=== PATIENT | female | born 1995 | race Caucasian/White ===

== ENCOUNTER → 2019-01-04 | Outpatient (CLI) | payer OTHER ==
[2019-01-04 13:14] LABS: BASO % 0.2 % (0.0-1.0); EOS # 0.1 10^3/uL (0.0-0.5); EOS % 0.4 % (0.0-3.0); HEMATOCRIT 39.4 % (36.0-47.0); HEMOGLOBIN 13.5 g/dl (12.0-15.5); LYMPH % 8.8 % (24.0-44.0); MEAN CORPUSCULAR HEMOGLOBIN 29.9 pg (27.0-33.0); MEAN CORPUSCULAR HGB CONC 34.3 g/dl (32.0-36.5); MEAN CORPUSCULAR VOLUME 87.4 fl (80.0-96.0); MONO # 0.4 10^3/uL (0.0-0.8); MONO % 3.5 % (0.0-5.0); NEUTROPHILS # 9.8 10^3/uL (1.5-8.5); NEUTROPHILS % 86.8 % (36.0-66.0); PLATELET COUNT, AUTOMATED 265 10^3/uL (150-450); RED BLOOD COUNT 4.51 10^6/uL (4.00-5.40); WHITE BLOOD COUNT 11.2 10^3/uL (4.0-10.0)
[2019-01-04 14:44] LABS: HEPATITIS C VIRUS ABY INDEX 0.1 INDEX (<0.8); HIV 1&2 SCREEN CENTAUR NEGATIVE (NEGATIVE); RUBELLA IgG QUALITATIVE IMMUNE (IMMUNE)
[2019-01-04 15:17] LABS: CHLAMYDIA DNA AMPLIFICATION NEGATIVE (NEGATIVE); GC DNA AMPLIFICATION NEGATIVE (NEGATIVE)
== END ==
LOC: M SMT 11:03
PROVIDERS: ATTEND Advanced Practice Midwife
DX: Z34.01 Encounter for supervision of normal first pregnancy, first trimester (principal); Z3A.09 9 weeks gestation of pregnancy

== ENCOUNTER → 2019-03-01 | Outpatient (CLI) | payer OTHER | LOC: M SMT 14:55 | PROVIDERS: ATTEND Advanced Practice Midwife | DX: Z13.79 Encounter for other screening for genetic and chromosomal anomalies (principal) ==

== ENCOUNTER → 2019-03-15 | Outpatient (CLI) | payer OTHER ==
--- NOTE | 2019-03-15 10:27 | REP ---
OB ULTRASOUND: Real-time sonographic evaluation of the gravid uterus performed. There is a single living intrauterine gestation. The estimated gestation age is 19 weeks 2 days, EDC 08/07/2019. Today's measurements indicate appropriate growth. Biometry and Growth: BPD 40 mm = 18 weeks 1 day, 19th percentile HC 151 mm = 18 weeks 1 day, 15th percentile AC 130 mm = 18 weeks 4 days, 33rd percentile FL 28 mm = 18 weeks 3 days, 28th percentile HC/AC ratio 1.16 within normal range. Estimated weight 240 grams, 17th percentile. SEEN/GROSSLY UNREMARKABLE Lateral ventricles Yes Posterior fossa Yes Upper lip Yes Four-chamber heart No LVOT Yes RVOT Yes Stomach Yes Cord insertion No Three vessel cord Yes Kidneys Yes Bladder Yes Spine Yes Cervical length: Cervix is closed and measures 2.9 cm in length. heart rate: 156 beats per minute. position: Vertex. Placenta: Posterior and grade 1 with no previa or abruption. Amniotic fluid: Within normal limits. Electronically Signed by Hayden Rosado MD 03/16/2019 11:16 A
== END ==
LOC: M RAD 08:52
PROVIDERS: ATTEND Advanced Practice Midwife
DX: Z34.02 Encounter for supervision of normal first pregnancy, second trimester (principal); Z3A.19 19 weeks gestation of pregnancy

== ENCOUNTER → 2019-04-13 | Outpatient (CLI) | payer OTHER ==
--- NOTE | 2019-04-13 09:28 | REP ---
Obstetric sonography: History: Supervision of followup anatomy, heart and cord insertion and growth. Findings: Scanning through the gravid uterus demonstrates a viable single intrauterine gestation in a cephalic lie. motion is observed and heart rate is recorded at 158 beats per minute. A posterior grade 1 placenta is seen without evidence of previa or abruption. Amniotic fluid is subjectively normal. Closed cervical length is viewed transabdominally and measured at 3.3 cm. No extrauterine abnormalities observed. There has been appropriate interval growth. The umbilical cord is seen draping over the neck. No anomaly is seen. Following anatomic structures are identified today and felt to be unremarkable: cranium, choroid plexus scan, cavum, cerebellum posterior fossa, face and profile, lungs, four-chamber heart with left and right ventricular outflow tract views, diaphragm, left-sided stomach, abdominal wall cord insertion, three-vessel cord, kidneys and bladder, spine, upper and lower extremities. Biometry chart: BPD 5.3 cm 22 weeks 1 day head circumference 20.1 cm 22 weeks 1 day abdominal circumference 16.7 cm 21 weeks 5 days femur length 4.0 cm 22-week 6 days humeral length 3.7 cm 22-week 6 days HC/AC ratio normal 1.20 cephalic index normal 0.73 estimated weight 483 grams/1 pound 1 ounce/11th percentile for 23 weeks 3 days Impression: Viable single intrauterine gestation at 22 weeks 2 days by today's composite sonographic criteria. Expected gestational age estimate based on prior sonography is 22 weeks 4 days. GREGORIA by prior sonography August 13, 2019. anatomic survey is felt to be complete. Electronically Signed by Neftali Tobin MD 04/13/2019 09:20 A
== END ==
LOC: M RAD 08:17
PROVIDERS: ATTEND Advanced Practice Midwife
DX: Z34.92 Encounter for supervision of normal pregnancy, unspecified, second trimester (principal); Z3A.22 22 weeks gestation of pregnancy

== ENCOUNTER → 2019-05-04 | Outpatient (CLI) | payer OTHER ==
[2019-05-04 13:36] LABS: BASO % 0.2 % (0.0-1.0); EOS # 0.2 10^3/uL (0.0-0.5); EOS % 2.2 % (0.0-3.0); HEMATOCRIT 37.5 % (36.0-47.0); HEMOGLOBIN 11.6 g/dl (12.0-15.5); LYMPH # 1.3 10^3/uL (1.5-5.0); LYMPH % 13.1 % (24.0-44.0); MEAN CORPUSCULAR HEMOGLOBIN 28.6 pg (27.0-33.0); MEAN CORPUSCULAR HGB CONC 30.9 g/dl (32.0-36.5); MEAN CORPUSCULAR VOLUME 92.4 fl (80.0-96.0); MONO # 0.5 10^3/uL (0.0-0.8); MONO % 5.2 % (0.0-5.0); NEUTROPHILS # 7.5 10^3/uL (1.5-8.5); NEUTROPHILS % 77.4 % (36.0-66.0); PLATELET COUNT, AUTOMATED 234 10^3/uL (150-450); RED BLOOD COUNT 4.06 10^6/uL (4.00-5.40); WHITE BLOOD COUNT 9.7 10^3/uL (4.0-10.0)
== END ==
LOC: M PLALAB 07:58
PROVIDERS: ATTEND Advanced Practice Midwife
DX: Z34.92 Encounter for supervision of normal pregnancy, unspecified, second trimester (principal)

== ENCOUNTER → 2019-05-16 | Outpatient (CLI) | payer OTHER | LOC: M WHC 09:38 | PROVIDERS: ATTEND Advanced Practice Midwife | DX: Z53.9 Procedure and treatment not carried out, unspecified reason (principal); O36.5990 Maternal care for other known or suspected poor fetal growth, unspecified trimester, not applicable or unspecified; Z3A.00 Weeks of gestation of pregnancy not specified ==

== ENCOUNTER → 2019-05-24 | Outpatient (CLI) | payer OTHER | LOC: M PLALAB 10:06 | PROVIDERS: ATTEND Advanced Practice Midwife | DX: Z13.79 Encounter for other screening for genetic and chromosomal anomalies (principal) ==

== ENCOUNTER → 2019-05-24 | Outpatient (CLI) | payer OTHER ==
--- NOTE | 2019-05-25 05:03 | REP ---
Clinical: IUGR for cord Doppler assessment and well-being Comparison: 05/12/2019 . Findings: Examination demonstrates a single live intrauterine in cephalic presentation. motion is identified by technologist. Placenta is noted posterior and grade I without evidence for placenta previa or abruption. Amniotic fluid volume is normal. Cervix measures 3.3 cm in length and appears closed. No evidence for nuchal cord. Gestational age by LMP 29 weeks 2 days with GREGORIA 08/07/2019 . FHR equals 153 beats per minute. Biophysical profile score: 8/8 Umbilical cord ( insertion) SD ratio: 3.24 (3.30 - 4.70); RI 0.69 Umbilical cord (placental insertion) SD ratio: 2.11 (2.5 - 3.5); RI 0.53 Umbilical cord (mid cord) SD ratio: 1.96 (2.5 - 3.5); RI 0.49 Impression: Single live intrauterine in cephalic presentation. Biophysical profile score normal.
== END ==
LOC: M WHC 09:26
PROVIDERS: ATTEND Specialist
DX: Z34.82 Encounter for supervision of other normal pregnancy, second trimester (principal)

== ENCOUNTER → 2019-06-05 | Outpatient (CLI) | payer OTHER ==
--- NOTE | 2019-06-05 09:31 | REP ---
Clinical: well-being Comparison: 05/24/2019 . Findings: Examination demonstrates a single live intrauterine in cephalic presentation. motion is identified by technologist. Placenta is noted posterior and grade I without evidence for placenta previa or abruption. Amniotic fluid volume is normal. Cervix measures 3.8 cm in length and appears closed. Nuchal cord noted. Gestational age by LMP 31 weeks 0 days with GREGORIA 08/07/2019 . FHR equals 162 beats per minute. Biophysical profile score: 8/8 Amniotic fluid index: 10.3 cm (8.8 - 23.8) Umbilical cord SD ratio: 2.06 (3.30 - 4.70) Impression: Single live advanced gestation in cephalic presentation. Biophysical profile score normal. Umbilical cord SD ratio below normal range. Nuchal cord noted. Electronically Signed by Macario Stephen MD 06/05/2019 09:22 A
== END ==
LOC: M RAD 08:01
PROVIDERS: ATTEND Advanced Practice Midwife
DX: O36.5990 Maternal care for other known or suspected poor fetal growth, unspecified trimester, not applicable or unspecified (principal); Z3A.31 31 weeks gestation of pregnancy

== ENCOUNTER → 2019-06-09 | Outpatient (CLI) | payer OTHER ==
--- NOTE | 2019-06-09 10:20 | REP ---
Clinical: well-being. Nonreactive stress test Comparison: 06/05/2019 . Findings: Examination demonstrates a single live intrauterine in cephalic presentation. motion is identified by technologist. Placenta is noted posterior and grade I without evidence for placenta previa or abruption. Amniotic fluid volume is normal. Cervix measures 3.2 cm in length and appears closed. Nuchal cord noted. Gestational age is 31 weeks 4 days with GREGORIA 08/07/2019 . FHR equals 149 beats per minute. Biophysical profile score: 8/8 Umbilical cord SD ratio: 2.46 (2.50 - 3.50) Amniotic fluid index: 13.3 cm (8.7 - 24.0) Impression: Single live advanced gestation in cephalic presentation. Biophysical profile score and amniotic fluid volume are normal. Nuchal cord noted.
== END ==
LOC: M WHC 09:04
PROVIDERS: ATTEND Specialist
DX: O36.5990 Maternal care for other known or suspected poor fetal growth, unspecified trimester, not applicable or unspecified (principal); O28.3 Abnormal ultrasonic finding on antenatal screening of mother; Z3A.31 31 weeks gestation of pregnancy

== ENCOUNTER → 2019-06-16 | Outpatient (CLI) | payer OTHER ==
--- NOTE | 2019-06-16 10:42 | REP ---
Clinical: well-being Comparison: 06/09/2019 . Findings: Examination demonstrates a single live intrauterine in cephalic presentation. motion is identified by technologist. Placenta is noted posterior and grade I without evidence for placenta previa or abruption. Amniotic fluid volume is normal. Cervix measures 3.2 cm in length and appears closed. No evidence for nuchal cord. Gestational age by LMP 32 weeks 4 days with GREGORIA 08/07/2019 . Gestational age by current measurements 31 weeks 0 days with GREGORIA 08/18/2019 . FHR equals 158 beats per minute. BPD 7.7 cm 30 weeks 6 days HC 29.1 cm 32 weeks 0 days AC 24.5 cm 28 weeks 5 days FL 6.0 cm 31 weeks 2 days HL 5.2 cm 30 weeks 2 days HC/AC ratio 1.19 Estimated weight 1501 grams (less than 3rd percentile). Biophysical profile score: 12/01 Amniotic fluid index: 8.9 cm (8.4 - 24.4) Anatomical assessment demonstrates normal structures including four-chamber heart, diaphragm, stomach, cord insertion/three-vessel cord, kidneys/bladder, and spine. Impression: Single live intrauterine in cephalic presentation. Less than expected interval growth noted. Amniotic fluid volume and biophysical profile score are normal.
== END ==
LOC: M WHC 09:37
PROVIDERS: ATTEND Advanced Practice Midwife
DX: O36.5930 Maternal care for other known or suspected poor fetal growth, third trimester, not applicable or unspecified (principal); Z3A.32 32 weeks gestation of pregnancy

== ENCOUNTER → 2019-06-23 | Outpatient (CLI) | payer OTHER ==
[~2019-06-23] MED LIST: MULTTAB20 PO; OSEL75CA PO; PENI500T PO
--- NOTE | 2019-06-23 12:31 | REP ---
OB ULTRASOUND AND BIOPHYSICAL PROFILE: Real-time sonographic evaluation of the gravid uterus performed. There is a single living intrauterine gestation. The estimated gestational age is 33 weeks 4 days, EDC 08/07/2019. Cervix is closed and measures 3 cm in length. heart rate 150 beats per minute. Amniotic fluid appears within normal limits, MICHEAL 13.1 within normal range of 8.2 to 24.7. Biophysical profile score is 8/8. S/D ratio in the umbilical artery is 2.17 within normal range of 2.0 to 3.0, RI 0.54 below normal range 0.59 to 0.75. position is vertex. Placenta posterior and grade 1 with no previa or abruption.
== END ==
LOC: M WHC 09:49
PROVIDERS: ATTEND Advanced Practice Midwife
DX: O36.5930 Maternal care for other known or suspected poor fetal growth, third trimester, not applicable or unspecified (principal)

== ENCOUNTER 2019-06-27 20:08 | Emergency (ER) | payer OTHER ==
[~2019-06-27] VITALS: Ht 160 cm; Wt 70.8 kg
[2019-06-27] MEDS ORDERED: MULTTAB20 PO (20:33)
[2019-06-27 21:18] LABS: INFLUENZA A AMPLIFICATION NEGATIVE (NEGATIVE); INFLUENZA B AMPLIFICATION POSITIVE (NEGATIVE)
[2019-06-27] MEDS ORDERED: PENI500T PO (23:08)
[2019-06-27] MEDS ORDERED: OSEL75CA PO (23:08)
[2019-06-27] MEDS ORDERED: PENICILLIN V POTASSIUM 500 MG TAB PO ONE (23:15)
[2019-06-27 23:16] VITALS: BP 119/67
== END 2019-06-27 23:33 | disposition home or self-care (01) ==
LOC: M ED 20:08
DX: O98.513 Other viral diseases complicating pregnancy, third trimester (principal); J10.1 Influenza due to other identified influenza virus with other respiratory manifestations; Z79.899 Other long term (current) drug therapy; Z3A.34 34 weeks gestation of pregnancy

== ENCOUNTER → 2019-06-27 | Outpatient (REF) | payer OTHER | LOC: M SFHCWAGY 17:10 | PROVIDERS: ATTEND Advanced Practice Midwife | DX: Z36.85 Encounter for antenatal screening for Streptococcus B (principal); O36.5930 Maternal care for other known or suspected poor fetal growth, third trimester, not applicable or unspecified ==

== ENCOUNTER → 2019-07-07 | Outpatient (CLI) | payer OTHER ==
--- NOTE | 2019-07-07 12:09 | REP ---
Obstetric ultrasound for growth: There is a single intrauterine gestation in a vertex presentation. There is movement and cardiac activity. The heart rate is 154 beats per minute. The placenta is posterior / left lateral without previa or abruptio and with grade 1 maturity. The amniotic fluid volume subjectively is normal. The amniotic fluid index is 12.4 (deepest pocket). The cervix measures 2.5 cm. Gestational age by today's ultrasound is 33 weeks 0 days/GREGORIA 08/25/2019. Gestational age by the first ultrasound is 34 weeks 5 days/GREGORIA 08/13/2019. Gestational age by LMP is 35 weeks 4 days/GREGORIA 08/07/2019. weight is 2088 grams/4 pounds, 9 ounces. This is the 6th percentile for 35 weeks 4 days. The umbilical cord is identified dripping over the neck. A nuchal cord cannot be excluded. Biophysical profile: Breathing 2.0 Movement 2.0 Tone 2.0 AFV 2.0 Total 280 / 8.0 Umbilical artery Doppler assessment: S/D ratio 2.16 (2.30-3.30) Resistive Index 0.54 (0.59-0.75 Diastolic Velocity 13.5. (>10 cm/sec) The cerebral artery Doppler assessment: S/D 4.74 - normal RI: 0.79 - normal MoM 0.91 (<1.5) Electronically Signed by Hayden Ortega MD 07/07/2019 12:02 P
== END ==
LOC: M RAD 09:52
PROVIDERS: ATTEND Obstetrics & Gynecology
DX: Z34.93 Encounter for supervision of normal pregnancy, unspecified, third trimester (principal); Z3A.34 34 weeks gestation of pregnancy

== ENCOUNTER → 2019-07-12 | Outpatient (CLI) | payer OTHER ==
--- NOTE | 2019-07-12 12:01 | REP ---
OB ULTRASOUND AND BIOPHYSICAL PROFILE.: Real-time sonographic evaluation of the gravid uterus performed. There is a single living intrauterine gestation with estimated gestational age 36 weeks 2 days, EDC 08/07/2019. Cervix is closed and measures 3.5 cm in length. heart rate 156 beats per minute. Amniotic fluid is within normal limits, MICHEAL 10.7 is within normal range of 7.6 to 24.8. Biophysical profile score is 8/8. S/D ratio in the mid umbilical arteries 2.24 within normal range of 1.88 to 2.88. RI 0.5 is slightly below normal range of 0.59 to 0.75. position vertex. Placenta posterior and grade 2 with no previa or abruption.
== END ==
LOC: M WHC 10:28
PROVIDERS: ATTEND Specialist
DX: O36.5990 Maternal care for other known or suspected poor fetal growth, unspecified trimester, not applicable or unspecified (principal); Z3A.36 36 weeks gestation of pregnancy

== ENCOUNTER → 2019-07-13 | Outpatient (REF) | payer OTHER ==
[~2019-07-13] MED LIST changes: +MAPA500T2 PO; +TUMS500C PO
[2019-07-13 12:00] LABS: HEMATOCRIT 38.6 % (36.0-47.0); HEMOGLOBIN 12.3 g/dl (12.0-15.5); MEAN CORPUSCULAR HGB CONC 31.9 g/dl (32.0-36.5); MEAN CORPUSCULAR VOLUME 87.9 fl (80.0-96.0); PLATELET COUNT, AUTOMATED 312 10^3/uL (150-450); RED BLOOD COUNT 4.39 10^6/uL (4.00-5.40); WHITE BLOOD COUNT 12.2 10^3/uL (4.0-10.0)
[2019-07-13 12:07] LABS: ALT/SGPT 24 U/L (12-78); BILIRUBIN,TOTAL 0.3 MG/DL (0.2-1.0); CREATININE FOR GFR 0.49 MG/DL (0.55-1.30); GLOMERULAR FILTRATION RATE > 60.0 (>60); LDH LACTATE DEHYDROGENASE 166 U/L (84-246); URIC ACID 3.6 MG/DL (2.6-6.0)
[2019-07-13 12:29] LABS: TOTAL PROTEIN,RANDOM URINE 38.8 MG/DL (0.0-12.0)
== END ==
LOC: M PLALAB 09:23
PROVIDERS: ATTEND Advanced Practice Midwife
DX: O16.3 Unspecified maternal hypertension, third trimester (principal)

== ENCOUNTER 2019-07-17 07:38 | Inpatient (IN) | payer OTHER ==
[2019-07-17] VITALS (26 sets, daily range): BP systolic 111–181; BP diastolic 56–88
[~2019-07-17] VITALS: Ht 160 cm; Wt 70.4 kg
[~2019-07-17 07:38] MED LIST changes: -MAPA500T2 PO; -TUMS500C PO
[2019-07-17] MEDS ORDERED: LACTATED RINGER'S 1000 ML IV STA (08:06)
[2019-07-17] MEDS ORDERED: MAPA500T2 PO (08:33)
[2019-07-17] MEDS ORDERED: TUMS500C PO (08:33)
[2019-07-17 08:58] LABS: HEMATOCRIT 36.1 % (36.0-47.0); HEMOGLOBIN 11.9 g/dl (12.0-15.5); MEAN CORPUSCULAR HEMOGLOBIN 28.1 pg (27.0-33.0); MEAN CORPUSCULAR VOLUME 85.1 fl (80.0-96.0); PLATELET COUNT, AUTOMATED 222 10^3/uL (150-450); RED BLOOD COUNT 4.24 10^6/uL (4.00-5.40); WHITE BLOOD COUNT 10.2 10^3/uL (4.0-10.0)
[2019-07-17] MEDS ORDERED: miSOPROStol 50 MCG 1/2 TAB (S0191) PO ONE (10:15)
[2019-07-17 10:22] LABS: ALT/SGPT 19 U/L (12-78); BILIRUBIN,TOTAL 0.3 MG/DL (0.2-1.0); CREATININE FOR GFR 0.54 MG/DL (0.55-1.30); GLOMERULAR FILTRATION RATE > 60.0 (>60); LDH LACTATE DEHYDROGENASE 194 U/L (84-246); URIC ACID 4.7 MG/DL (2.6-6.0)
--- NOTE | 2019-07-17 10:45 | HPEPDOC ---
Obstetrical History & Physical General Date of Admission Jul 17, 2019 at 07:38 Primary Care Physician: ANKIT MENDIOLA CNM History of Present Illness Patient is a 24-year-old female who is a at 37 weeks gestation with an GREGORIA of 08/08/19 based off of her LMP and consistent with her first trimester ultras ound. She initiated care in her first trimester of with [facility]. Her has been complicated by IUGR, which was diagnosed in late second trimester and GHTN, which was just diagnosed last week. Patient reports active movement. She denies preeclamptic symptoms, vaginal bleeding, leaking of fluid or contractions. Chief Complaint: Gestational Hypertension, Other (IUGR) Information Provided By: Patient Age: 24 : 1 Term: 0 Pre-term: 0 Abortions: 0 Livin Care Care: Good Care Dating Final EDC: Aug 07, 2019 Final EDC by: LMP EGA at Admission: 37 Antepartum Course Diagnos(e)s intrauterine growth restriction Gestational hypertension Height (inches): 63 Pre- weight (lbs.): 140 Admission Weight (lbs.): 154 Change in Weight (lbs.): 14 Past Medical History Past Obstetrical History : Past Obstetrical History: Primgravida Past Medical History Medical History scoliosis varicella as a child Surgical History: Denies/None Family History Significant Family History: Diabetes Social History Marital Status: Family situation: Spouse/partner home Psychosocial History: No pertinent psych hx * Smoker: non-smoker Alcohol: Denies Drugs: denies Abuse Violence Screening Have you been hit/kicked/slapp: No Have you been sexually assault: No Imunizations Tdap status: current Allergies Coded Allergies: No Known Allergies (Unverified , 06/27/19) Medications Scheduled Calcium Carbonate (Tums) 200 Mg Tab.chew, 2 TAB PO QID for cough and congestion No122/Iron/Folic Acid ( Multi Tablet) 1 Each Tablet, 1 TAB PO DAILY Miscellaneous Medications Acetaminophen (Mapap) 500 Mg Tablet, 1,000 MG PO Physical Examination Physical Examination GENERAL: Alert and oriented times three. BREAST: . ABDOMEN: Gravid and non-tender to touch. FETUS: Is vertex (VTX) by sterile vaginal examination (SVE), fetus is vertex (VTX) by Joshua. HEART RATE: Regular rate and rhythm. LUNGS: Clear to auscultation (CTA). EXTREMITIES: No edema. No clonus. Deep tendon reflexes (DTRs) + 2. Vital Signs/I&O Vital Signs Date Time Temp Pulse Resp B/P (MAP) Pulse Ox O2 Delivery O2 Flow Rate FiO2 07/17/19 08:54 96 16 120/69 (86) 07/17/19 07:58 98.3 97 Room Air Laboratory Data 24H LABS Laboratory Tests 2 07/17/19 07:50: Serology Scanned Report Hepatitis B Testing 07/17/19 08:37: Nucleated Red Blood Cells % (auto) 0.0 CBC/BMP Laboratory Tests 07/17/19 08:37 Urine Culture: No Growth Pertinent Laboratoy Data Blood Type: A+ RBC Antibody Screen: Negative HIV: Negative Hepatitis B: Negative Hepatitis C: Negative Rapid Plasma Reagin: Nonreactive Rubella: Immune Chlamydia/Gonorrhea: Negative Group B Streptococcus: Negative Glucose Tolerance Test: 104 Diag/Inter Therapy NIPT test is low risk Horizons test is negative for 4 /4 disease Anatomy Ultrasound Ultrasound Date: Jul 07, 2019 Placenta Location: Posterior Normal Anatomy: Yes Placenta Previa: No Estimated Weight (grams): 2087 Vaginal Examination Dilation: 1cm Effacement: 80% Station: -1 Cervical Consistency: Soft Cervical Position: Anterior Presentation: Cephalic presentation Position: Vertex (occiput) Assessment Heart Rate (FHR): 150 Variability: Moderate Accelerations: Positive Decelerations: None Tocometer Contractions: No Assessment/Plan Assessment IUP at 37 weeks gestation GBS negative GHTN IUGR Category I FHR tracing Plan Admit to L&D per physicians recommendation. Plan of care was collaborated with Dr. Billings. AMIE ad lindy. Diet: regular now and then clears when IV Pitocin is started. Group B Streptococcus (GBS) negative. Labs and intravenous (IV) per unit protocol. Counseled on Cytotec, pak bulb and IV Pitocin for induction of labor. Cytotec ordered to start. Anesthesia and neonatology consult as needed. Lactated Ringers (LR): Bolus prior to epidural at 500 mL, then at 125 mL/hr. Anticipate cervical ripening. C-S as appropriate. ANKIT MENDIOLA CNM Jul 17, 2019 10:45
[2019-07-17] MEDS ORDERED: OXYTOCIN 30 UNITS IN 0.9% NaCl 500ML IV BAG (J2590) As Ordered ONE (15:02)
[2019-07-17] MEDS ORDERED: OXYTOCIN DRIP 30 UNITS in IV 1 EA IV SCH (15:15)
--- NOTE | 2019-07-17 15:21 | IPNPDOC ---
Obstetrical Progress Note Date of Service Jul 17, 2019 Subjective Patient reports she is just feeling some cramping. Objective Vital Signs Date Time Temp Pulse Resp B/P (MAP) Pulse Ox O2 Delivery O2 Flow Rate FiO2 07/17/19 13:40 99 122/62 (82) 07/17/19 12:25 98.4 16 Room Air 07/17/19 07:58 97 Assessment Heart Rate (FHR): 140 Variability: Moderate Accelerations: Positive Decelerations: None Heart Rate Tracing: Category I Tocometer Contractions: Yes Frequency: regular, every 1-3 min. Sterile Vaginal Examination Dilation: 1cm Effacement (%): 80% Station: -1 Cervical Consistency: Soft Cervical Position: Anterior Postion/Presentation: Cephalic presentation Assessment and Plan Age: 24 : 1 Term: 0 Pre-term: 0 Abortions: 0 Livin EGA at Admission: 37 Status: Reassuring Group B Streptococcus: Negative Anticipate: Vaginal Delivery Additional Comments Masters bulb placed with 60/40. IV Pitocin to be started per order. Patient tolerated well. ANKIT MENDIOLA CNM Jul 17, 2019 15:21
[2019-07-17] MEDS: LR 1,000 ML IV SCH (15:24)
--- NOTE | 2019-07-17 19:26 | IPNPDOC ---
Obstetrical Progress Note Date of Service Jul 17, 2019 Subjective Patient reports she feels like she has to pee but has gotten up multiple times an unable to void. She does feel some cramping. Objective Vital Signs Date Time Temp Pulse Resp B/P (MAP) Pulse Ox O2 Delivery O2 Flow Rate FiO2 07/17/19 18:23 90 16 123/69 (87) 07/17/19 17:54 98.7 Assessment Heart Rate (FHR): 150 Variability: Moderate Accelerations: Positive Decelerations: None Heart Rate Tracing: Category I Tocometer Contractions: Yes Sterile Vaginal Examination Dilation: 5 cm Effacement (%): 80% Station: -1 Cervical Consistency: Soft Cervical Position: Anterior Postion/Presentation: Cephalic presentation Assessment and Plan Status: Reassuring Group B Streptococcus: Negative Anticipate: Vaginal Delivery Additional Comments IV Pitocin to be increased per order for desired contractions. Consider ANKIT DEGROOT CNM Jul 17, 2019 19:26
--- NOTE | 2019-07-17 22:50 | IPNPDOC ---
Obstetrical Progress Note Date of Service Jul 17, 2019 Subjective Patient reports she is feeling comfortable. Objective Vital Signs Date Time Temp Pulse Resp B/P (MAP) Pulse Ox O2 Delivery O2 Flow Rate FiO2 07/17/19 18:23 90 16 123/69 (87) 07/17/19 17:54 98.7 Assessment Heart Rate (FHR): 150 Variability: Moderate Accelerations: Positive Decelerations: None Heart Rate Tracing: Category I Tocometer Contractions: Yes Frequency: regular, every 1-3 min. Sterile Vaginal Examination Dilation: 6 cm Effacement (%): 80% Station: -2 Cervical Consistency: Soft Cervical Position: Anterior Postion/Presentation: Cephalic presentation Assessment and Plan Age: 24 : 1 Term: 0 Pre-term: 0 Abortions: 0 Livin EGA at Admission: 37 Status: Reassuring Group B Streptococcus: Negative Anticipate: Vaginal Delivery Additional Comments AROM to a moderate amount of clear fluid. IV Pitocin is a 8 mu/min. Consider placing IUPC. ANKIT MENDIOLA CNM Jul 17, 2019 22:50
[2019-07-18] VITALS (42 sets, daily range): BP systolic 79–152; BP diastolic 51–89
[2019-07-18] MEDS ORDERED: FENTANYL 2MCG/ML ROPIVACAINE 0.2% IN 0.9% NACL 100ML IVBAG As Ordered ONE ×2 (00:01→09:46)
[2019-07-18] MEDS ORDERED: LACTATED RINGER'S 1000 ML IV PRN (02:00)
[2019-07-18] MEDS ORDERED: ePHEDrine SULFATE 25 MG/5 ML(5MG/ML) SYRINGE IV PRN (02:00)
[2019-07-18] MEDS ORDERED: diphenhydrAMINE INJ 50MG/ML VIAL (J1200) IV PRN (02:00)
[2019-07-18] MEDS ORDERED: EPIDURAL/PCA KEYS XX PRN (02:00)
[2019-07-18] MEDS ORDERED: NALOXONE INJ 0.4 MG/1 ML VIAL (J2310) IV PRN (02:00)
[2019-07-18] MEDS ORDERED: REFRIGERATOR IV KEYS XX PRN (02:00)
[2019-07-18] MEDS ORDERED: ONDANSETRON 4MG/2ML VIAL (J2405) IV PRN ×2 (02:00→11:45)
[2019-07-18] MEDS ORDERED: EPIDURAL COMMENT XX SCH (02:00)
[2019-07-18] MEDS: LR 1,000 ML IV SCH ×2 (02:28→09:30)
[2019-07-18] MEDS: FENTANYL/ROPIVACAINE/NACL BAG 100 ML EPIDURAL SCH ×2 (07:45→09:48)
[2019-07-18] MEDS ORDERED: LR 1,000 ML IV SCH (11:36)
[2019-07-18] MEDS ORDERED: OXYTOCIN DRIP 30 UNITS in IV 1 EA IV SCH (11:36)
[2019-07-18] MEDS ORDERED: DOCUSATE SODIUM 100 MG CAP PO PRN (11:45)
[2019-07-18] MEDS ORDERED: DIBUCAINE 1% OINTMENT 30GM TOP PRN (11:45)
[2019-07-18] MEDS ORDERED: ACETAMINOPHEN TAB 650MG DOSE (2X325MG) PO PRN (11:45)
[2019-07-18] MEDS ORDERED: ACETAMINOPHEN 500 MG TAB PO PRN (11:45)
[2019-07-18] MEDS ORDERED: PROMETHAZINE 25 MG TAB PO PRN (11:45)
[2019-07-18] MEDS ORDERED: IBUPROFEN 800 MG TAB PO PRN (11:45)
[2019-07-18] MEDS ORDERED: MEASLES,MUMPS,RUBELLA VACCINE INJ (MMR-II) (90707) SC SCH (11:45)
[2019-07-18] MEDS ORDERED: IBUPROFEN 600 MG TAB PO PRN (11:45)
[2019-07-18] MEDS ORDERED: RHOGAM 300 MCG (1500 IU) INJ (J2790) IM SCH (11:45)
[2019-07-19 06:00] VITALS: BP 117/71
[2019-07-19] MEDS ORDERED: INFLUENZA QUADRIVALENT PF VACCINE 0.5ML SYRINGE (90686) IM ONE (09:00)
[2019-07-19] MEDS: PRENATAL VITAMINS CHEWABLE TABLET PO SCH (09:00)
[2019-07-19 18:01] VITALS: BP 111/56
[2019-07-20 06:06] VITALS: BP 127/77
[2019-07-20] MEDS: PRENATAL VITAMINS CHEWABLE TABLET PO SCH (10:24)
== END 2019-07-20 14:30 | disposition home or self-care (01) | DRG 807 ==
LOC: M LDI 07:38 → M OBS 07-18 14:27
PROVIDERS: ADMIT Advanced Practice Midwife; ATTEND Advanced Practice Midwife
PROC: 10E0XZZ Delivery of Products of Conception, External Approach (ICD-10-PCS; principal; 2019-07-18)
PROC: 0HQ9XZZ Repair Perineum Skin, External Approach (ICD-10-PCS; 2019-07-18)
DX: O13.4 Gestational [pregnancy-induced] hypertension without significant proteinuria, complicating childbirth (principal); Z37.0 Single live birth; Z3A.37 37 weeks gestation of pregnancy; O70.0 First degree perineal laceration during delivery; O36.5920 Maternal care for other known or suspected poor fetal growth, second trimester, not applicable or unspecified

== ENCOUNTER → 2019-12-07 | Outpatient (REF) | payer OTHER ==
[~2019-12-07] MED LIST changes: +MAPA500T2 PO; +TUMS500C PO
[2020-01-14 11:29] LABS: CHLAMYDIA DNA AMPLIFICATION NEGATIVE (NEGATIVE); GC DNA AMPLIFICATION NEGATIVE (NEGATIVE)
== END ==
LOC: M SFHCWAGY 11:56
PROVIDERS: ATTEND Obstetrics & Gynecology
DX: Z12.4 Encounter for screening for malignant neoplasm of cervix (principal); Z11.3 Encounter for screening for infections with a predominantly sexual mode of transmission
CPT/HCPCS: 87661; G0123

== ENCOUNTER → 2021-09-16 | Outpatient (CLI) | payer OTHER | LOC: M PLALAB 10:30 | PROVIDERS: ATTEND Advanced Practice Midwife | DX: O20.0 Threatened abortion (principal) ==